=== PATIENT | female | born 1990 | race Two or more races ===

== ENCOUNTER 2019-03-17 23:21 | Outpatient (CLI) | payer BC ==
[~2019-03-17] VITALS: Ht 162.6 cm; Wt 127.7 kg
[~2019-03-17 23:21] MED LIST: AMOX1TAB10 PO; BEN25 PO; FER325 PO; IBUP800T48 PO; PREN-93 PO; URSO300C21 PO
[2019-03-18] MEDS ORDERED: DIPHENHYDRAMINE 25 MG CAP PO ONE
[2019-03-18] MEDS ORDERED: BETAMET NA PHOS/AC(6 MG/ML) 2 ML INJ SYG IM ONE
[2019-03-18 00:01] VITALS: Ht 162.6 cm; Wt 127.7 kg
[2019-03-18 00:03] VITALS: BP 121/73; PULSE 111; RESP 20
--- NOTE | 2019-03-18 01:08 | PN ---
Triage Information Date/Time Reason for visit: NST BPP for cholestasis and BMZ for prep for early delivery Weeks of Gestation 35w3d /Para Diabetes: none Diabetes management: insulin controlled Hypertention: none Additional information on actigall 300mg TID and [id number] prn plan to deliver 36w Objective Vital Signs Date Temp Pulse Resp B/P (MAP) Pulse Ox O2 O2 Flow FiO2 Time Delivery Rate 03/18/19 98.3 111 20 121/73 Room Air 00:03 (89) Heart Rate: 140's Heart Rate Comments CAT I Contractions: None Results/Medications Imaging Results BPP 03/31 ABDELRAHMAN 22.1 Disposition: Discharge Assessment/Plan A IUP 35w3d cholestasis of P deliver at 36w RTH for second dosage of BMZ tomorrow LUAN CORONADO MD Mar 18, 2019 01:08
--- NOTE | 2019-03-18 03:54 | TRIAGE ---
OB Triage Datetime Report Generated by CPN: 03/18/2019 03:54 Datetime: 03/18/2019 00:42 Stage of : OB Triage Datetime: 03/18/2019 00:41 Stage of : OB Triage Labor Evaluation Frequency: Occasional Monitor Mode: External Duration (sec)2399: 40-70 Quality: Mild Pattern: Normal: <= 5 Contractions in 10 Minutes Resting Tone [place]: Relaxed Heart Rate FHR Baseline Rate: 145 Monitor Mode: External US FHR Baseline Changes: No Baseline Change Variability: Moderate 6-25 bpm Accelerations: 15X15 Datetime: 03/18/2019 00:00 Stage of : OB Triage Labor Evaluation Frequency: Irritability Monitor Mode: External Duration (sec)2399: 20-40 Quality: Mild Pattern: Normal: <= 5 Contractions in 10 Minutes Resting Tone [place]: Relaxed Heart Rate FHR Baseline Rate: 145 Monitor Mode: External US Variability: Moderate 6-25 bpm Accelerations: 15X15 Decelerations: None Category: Category I Datetime: 03/17/2019 23:55 Stage of : OB Triage Datetime: 03/17/2019 23:54 Stage of : OB Triage Datetime: 03/17/2019 23:39 Stage of : OB Triage Assessment Type: Triage Maternal Assessment Level of Consciousness: Keenly Alert, Responsive DTR's/Clonus: DTRs 2+; No Clonus Headache: Denies Blurred Vision: No Respiratory Effort: Unlabored; Regular Rhythm; Equal Expansion Breath Sounds, Left: Clear and Equal Breath Sounds, Right: Clear and Equal Nausea/Vomiting: Denies RUQ Epigastric Pain: Denies Lower Extremities Edema: Bilateral Lower Extremities Degree: Pitting Upper Extremities Edema: None Degree: None Facial Edema: None Temperature Route: Oral Fall Risk Assessment History of Falling: (0) No Secondary Diagnosis: (0) No Ambulatory Aid: (0) Bedrest/Nurse Assist IV Therapy: (0) No Gait: (0) Normal/Bedrest/Immobile Mental Status: (0) Oriented to Own Ability Fall Score: 0 Fall Risk Score Definition: No Risk: No action required Pain Assessment Pain Scale: 0 Pain Presence: None/Denies Pain Type: N/A Datetime: 03/17/2019 23:36 Time of Arrival: 03/17/2019 23:13 EGA: 35.3 Arrived By: Ambulatory Arrived From: Dr. Colbert Chief Complaint: C/O Itching Follow-up for cholestasis Sent from clinic for BPP _ Betamethasone Movement: Present Contractions: Denies/Absent Rupture of Membranes: Denies Vaginal Bleeding: None Vaginal Discharge: Denies Abdominal Trauma: Not Applicable Patient Complaints: Other Additional Patient Complaints: Pt taking Actigall 300mg TID - only took 1 pill today @1999. C/O itc donald all over body at this time. Took Benadryl 25mg @1999 but states usually takes 50mg. Dr.Delshad sheila christianson told pt to come to triage this morning after clinic visit. Pt states plans to delive r her @36wks. Time Provider Notified: 03/17/2019 23:55 Provider Notified: Initial Plan: BPP, Betamethasone injection Datetime: 03/17/2019 23:32 Stage of : OB Triage Monitor Mode: External Contraction Comments: [place] applied Heart Rate FHR Baseline Rate: 150 Monitor Mode: External US Comments: EFM applied Datetime: 03/10/2019 15:39 EGA: 34.3
== END 2019-03-18 01:20 | disposition home or self-care (01) ==
LOC: OBT 23:21 → L-D 23:21 → OBT 03-18 01:20
PROVIDERS: ATTEND Obstetrics & Gynecology
DX: O26.613 Liver and biliary tract disorders in pregnancy, third trimester (principal); K83.1 Obstruction of bile duct; O24.414 Gestational diabetes mellitus in pregnancy, insulin controlled; Z3A.35 35 weeks gestation of pregnancy
CPT/HCPCS: 76818; 96372; J0702; Z7500; Z7610; G0463

== ENCOUNTER 2019-03-18 23:12 | Outpatient (CLI) | payer BC ==
[~2019-03-18] VITALS: Ht 162.6 cm; Wt 126.9 kg
[2019-03-18 23:36] VITALS: Ht 162.6 cm; Wt 126.9 kg
[2019-03-18 23:37] VITALS: BP 115/81; PULSE 123; RESP 20
[2019-03-19] MEDS ORDERED: BETAMET NA PHOS/AC(6 MG/ML) 2 ML INJ SYG IM ONE (00:30)
--- NOTE | 2019-03-19 01:54 | TRIAGE ---
OB Triage Datetime Report Generated by CPN: 03/19/2019 01:54 Datetime: 03/18/2019 23:46 Frequency: NONE Monitor Mode: External Resting Tone [place]: Relaxed FHR Baseline Rate: 135 Monitor Mode: External US Variability: Moderate 6-25 bpm Accelerations: 15X15 Decelerations: None Category: Category I Datetime: 03/18/2019 23:27 Time of Arrival: 03/18/2019 23:03 EGA: 35.4 Arrived By: Wheelchair Arrived From: Home Chief Complaint: NST, 2nd dose of Betamethasone Movement: Present Contractions: Denies/Absent Rupture of Membranes: Denies Vaginal Bleeding: None Vaginal Discharge: Denies Recent Sexual Intercouse: Denies Abdominal Trauma: Not Applicable Patient Complaints: None Time Provider Notified: 03/18/2019 23:30 Provider Notified: Dr. Shultz Initial Plan: NST, Beta Datetime: 03/18/2019 23:23 Stage of : OB Triage Assessment Type: Triage Level of Consciousness: Keenly Alert, Responsive DTR's/Clonus: DTRs 2+; No Clonus Headache: Denies Blurred Vision: No Respiratory Effort: Unlabored; Regular Rhythm; Equal Expansion Breath Sounds, Left: Clear and Equal Breath Sounds, Right: Clear and Equal Nausea/Vomiting: Denies RUQ Epigastric Pain: Denies Lower Extremities Edema: None Degree: None Upper Extremities Edema: None Degree: None Facial Edema: None Temperature Route: Oral History of Falling: (0) No Secondary Diagnosis: (0) No Ambulatory Aid: (0) Bedrest/Nurse Assist IV Therapy: (0) No Gait: (0) Normal/Bedrest/Immobile Mental Status: (0) Oriented to Own Ability Fall Score: 0 Fall Risk Score Definition: No Risk: No action required Pain Scale: 0 Pain Presence: None/Denies Pain Type: N/A Datetime: 03/18/2019 23:21 Monitor Mode: External (Annotations: Applied) Resting Tone [place]: Relaxed Monitor Mode: External US (Annotations: Applied) Datetime: 03/18/2019 00:41 Pain Scale: 0 Pain Presence: None/Denies Pain Type: N/A Datetime: 03/18/2019 00:22 Stage of : OB Triage
--- NOTE | 2019-03-22 23:01 | PN ---
Triage Information Date/Time Reason for visit: cholestasis of Weeks of Gestation 35 weeks /Para Diabetes: none Hypertention: none Objective Vital Signs Date Temp Pulse Resp B/P (MAP) Pulse Ox O2 O2 Flow FiO2 Time Delivery Rate 03/18/19 98.1 123 20 115/81 98 Room Air 23:37 (92) Heart Rate: 120's Heart Rate Comments Reactive Disposition: Discharge Assessment/Plan Patient was given IM betamethasone for lung maturity FLORECITA ANDERSEN MD Mar 22, 2019 23:01
== END 2019-03-19 01:00 | disposition home or self-care (01) ==
LOC: OBT 23:12 → L-D 23:13 → OBT 03-19 01:00
PROVIDERS: ATTEND Obstetrics & Gynecology
DX: O26.613 Liver and biliary tract disorders in pregnancy, third trimester (principal); K83.1 Obstruction of bile duct; Z3A.35 35 weeks gestation of pregnancy
CPT/HCPCS: J0702; Z7500; G0463

== ENCOUNTER 2019-03-21 16:00 | Inpatient (IN) | payer BC ==
[~2019-03-21] VITALS: Ht 162.6 cm; Wt 127.4 kg
[2019-03-21] MEDS ORDERED: OXYTOCIN 30 UNITS/LR 500 ML IV PRN (17:30)
[2019-03-21] MEDS ORDERED: OXYTOCIN 30 UNITS/LR 500 ML IV SCH ×2 (17:30)
[2019-03-21] MEDS ORDERED: LIDOCAINE 1% (MPF) 30 ML INJ INJ PRN (17:30)
[2019-03-21] MEDS ORDERED: BUTORPHANOL 2 MG INJ IV PRN (17:30)
[2019-03-21] MEDS ORDERED: MISOPROSTOL 200 MCG TAB PR PRN (17:30)
[2019-03-21] MEDS ORDERED: METHYLERGONOVINE 0.2 MG INJ IM PRN (17:30)
[2019-03-21] MEDS ORDERED: CARBOPROST 250 MCG INJ IM PRN (17:30)
[2019-03-21] MEDS ORDERED: IBUPROFEN 600 MG TAB PO PRN (17:30)
[2019-03-21 17:34] VITALS: BP 120/71; PULSE 104; RESP 18; Ht 162.6 cm; Wt 127.4 kg
[2019-03-21] MEDS: LACTATED RINGER'S 1,000 ML IV SCH (18:43)
[2019-03-21] MEDS ORDERED: AMPICILLIN 2 GM/NS (PMX) 100 ML IV ONE (19:00)
--- NOTE | 2019-03-21 19:46 | HP ---
Date/Time of Note Date/Time of Note DATE: 03/21/19 TIME: 19:44 OB - History Hx of Present Chief Complaint: induction of labor Estimated Due Date: Apr 18, 2019 : 1 Para: 0 Spontaneous : 0 Therapeutic : 0 Care: Good Care Ultrasounds: Normal mid trimester US Obstetrical Complications: None Medical Complications: None Past Family/Social History * Past Medical, Surgical, Family and Obstetric Histories reviewed from chart. GBS Status: Positive OB Admission Exam Vital Signs Vital Signs Vital Signs Date Temp Pulse Resp B/P (MAP) Pulse Ox O2 O2 Flow FiO2 Time Delivery Rate 03/21/19 98.2 104 18 120/71 17:34 (87) Physical Exam HEENT: WNL Heart: Rhythm Normal Lungs: Clear, Equal Abdomen: WNL Extremities: Normal Reflexes: Normal Cervical Dilatation: None Effacement: 50% Station: -2 Membranes: Intact Heart Rate: 120's Accelerations: Accelerations Present Decelerations: No Decelerations Varibility: Moderate Last 72 hours Lab Results CBC & BMP 03/21/19 18:45 OB Assessment/Plan Reason for admission: induction of labor Other Assessment: Intrahepatic cholestasis of Plan: Induction Induction Method: per Misoprostol Protocol FLORECITA ANDERSEN MD Mar 21, 2019 19:46
[2019-03-21] MEDS: MISOPROSTOL 50 MCG CAPSULE PO SCH (20:14)
[2019-03-21] MEDS: URSODIOL 300 MG CAP PO SCH (21:13)
[2019-03-22] MEDS: AMPICILLIN 1 GM/NS (PMX) 50 ML IV SCH ×7 (00:22→22:56)
[2019-03-22] MEDS: MISOPROSTOL 50 MCG CAPSULE PO SCH ×6 (00:22→17:00)
[2019-03-22] MEDS: LACTATED RINGER'S 1,000 ML IV SCH ×4 (02:53→19:41)
[2019-03-22] MEDS: URSODIOL 300 MG CAP PO SCH ×3 (09:19→23:17)
--- NOTE | 2019-03-22 12:21 | PREAC ---
Date/Time of Note Date/Time of Note DATE: 03/22/19 TIME: 12:20 Anesthesia Eval and Record Evaluation Time Pre-Procedure Interview DATE: 03/22/19 TIME: 12:20 Age 28 Sex female NPO: 8 hrs Preoperative diagnosis iup at term Planned procedure labor epidural Past Medical History Past Medical History: Includes GI: Morbid obesity Surgery & Anesthesia Issues No known issue Meds Anticoagulation: No Beta Magdalena within 24 hr: No Reason Beta Magdalena not given: Pt. not on B-Magdalena Reported Medications Diphenhydramine Hcl* (Benadryl*) 25 Mg Cap, 25 MG PO Q6H PRN for ITCHING, CAP 03/18/19 Ferrous Sulfate* (Ferrous Sulfate*) 325 Mg Tabec, 325 MG PO BID, TAB 03/10/19 Ursodiol* (Actigall*) 300 Mg Cap, 300 MG PO TID, #90 CAP 03/10/19 Vit No.124/Iron/FA ( Vitamin Tablet) 1 Each Tablet, 1 EACH PO DAILY, TAB 03/10/19 Current Medications Lactated Ringer's 1,000 ml @ 125 mls/hr Q8H IV Last administered on 03/22/19at 02:53; Admin Dose 125 MLS/HR; Start 03/21/19 at 17:07 Butorphanol Tartrate (Stadol) 2 mg Q2H PRN IV .PAIN SCALE 6-10 Last administered on 03/22/19at 05:13; Admin Dose 2 MG; Start 03/21/19 at 17:30 Lidocaine (Xylocaine 1% (Mpf)) 30 ml ONCE PRN INJ .EPISIOTOMY; Start 03/21/19 at 17:30 Oxytocin/Lactated Ringer's 500 ml @ 500 mls/hr ONCE POST IV ; Start 03/21/19 at 17:30 Oxytocin/Lactated Ringer's 500 ml @ 125 mls/hr POST IV ; Start 03/21/19 at 17:30 Ibuprofen (Motrin) 600 mg ONCE PRN PO .PAIN 1-5; Start 03/21/19 at 17:30 Oxytocin/Lactated Ringer's 500 ml @ 0 mls/hr ONCE PRN IV .VAGINAL BLEEDING; Sta rt 03/21/19 at 17:30 Methylergonovine Maleate (Methergine) 0.2 mg ONCE PRN IM .VAGINAL BLEEDING; Sta rt 03/21/19 at 17:30 Carboprost Tromethamine (Hemabate) 250 mcg ONCE PRN IM .VAGINAL BLEEDING; Start 03/21/19 at 17:30 Misoprostol (Cytotec) 1,000 mcg ONCE PRN MI .VAGINAL BLEEDING; Start 03/21/19 at 17:30 Ampicillin 50 ml @ 100 mls/hr Q4H IV Last administered on 03/22/19at 09:19; Admin Dose 100 MLS/HR; Start 03/21/19 at 23:00 Ursodiol (Actigall) 300 mg TID PO Last administered on 03/22/19at 09:19; Admin Dose 300 MG; Start 03/21/19 at 21:00 Misoprostol (Cytotec 50 Mcg Capsule) 50 mcg Q4 PO Last administered on 03/22/19at 00:22; Admin Dose 50 MCG; Start 03/21/19 at 20:00 Oxytocin/Lactated Ringer's 500 ml @ 0 mls/hr FOR INDUCTION IV ; Start 03/22/19 at 12:30 Meds reviewed: Yes Allergies Coded Allergies: No Known Allergy (Unverified , 03/18/19) Allergies Reviewed: Yes Labs/Studies Labs Reviewed: Reviewed by anesthesiologist Result Diagram: 03/21/19 1845 Laboratory Tests 03/21/19 18:45 Blood Bank Test 03/21/19 18:45 Antibody Screen NEGATIVE Blood Type AB POSITIVE Rh Immune Globulin Candidate NO test: Positive Pre-procedure Exam Last vitals Vital Signs Date Temp Pulse Resp B/P (MAP) Pulse Ox O2 O2 Flow FiO2 Time Delivery Rate 03/21/19 98.2 104 18 120/71 17:34 (87) Airway: Adequate mouth opening, Adequate thyromental dist Mallampati: Mallampati II Teeth: Normal Lung: Normal Heart: Normal ASA Physical Status ASA physical status: 2 Emergency: None Planned Anesthetic Neuraxial: Epidural Planned Pain Management Parenteral pain med Pre-operative Attestations Prior to commencing anesthesia and surgery, the patient was re-evaluated, there was verification of: *The patient's identity *The results of appropriate recent lab work and preoperative vital signs *The above evaluation not changing prior to induction *Anesthetic plan, risk benefits, alternative and complications discussed with patient/family; questions answered; patient/family understands, accepts and wis hes to proceed. JOANA MCMULLEN 30, 2019 12:21
[2019-03-22] MEDS ORDERED: FENTAnyl 2MCG/ML-ROPIV 0.2% 100 ML ONE (12:23)
[2019-03-22] MEDS ORDERED: ONDANSETRON 4 MG INJ IV PRN (12:30)
[2019-03-22] MEDS ORDERED: OXYTOCIN 30 UNITS/LR 500 ML IV SCH (12:30)
[2019-03-22] MEDS ORDERED: NALOXONE (0.4 MG/ML) INJ IV PRN (12:30)
[2019-03-22] MEDS ORDERED: FENTAnyl 2MCG/ML-ROPIV 0.2% 100 ML BAG EPI SCH (12:30)
[2019-03-22] MEDS ORDERED: DIPHENHYDRAMINE 50 MG INJ IV PRN (12:30)
[2019-03-23] MEDS ORDERED: MINERAL OIL LIGHT 10 ML VIAL TOP ONE (02:44)
[2019-03-23] MEDS: AMPICILLIN 1 GM/NS (PMX) 50 ML IV SCH (03:00)
--- NOTE | 2019-03-23 03:39 | LDN ---
Date/Time of Note Date/Time of Note DATE: 03/23/19 TIME: 03:36 Delivery Summary Weeks of Gestation 36 weeks and 2 days Placenta Delivered: Spontaneously Meconium: Light Episiotomy: No Laceration repair: Second degree perineal laceration repaired with 3-0 Vicryl and 3-0 chromic. Anesthesia type: Epidural Estimated blood loss: 300 Sponge & Needle done & correct: Yes All needle counts correct: Yes Any foreign bodies felt in the: No Delivery Information Sex Infant Sex: female Apgars 1 Minute: 8 5 Minute: 9 Suctioning Nose & mouth suctioned at sandeep: No Delee suction performed: No Umbilical Cord Umbilical cord with: 3 Vessels Cord presentations: no nuchal cord Cord Blood was obtained: Yes Mother & Baby Disposition Disposition Mom & Baby to Maternity; Good: Yes FLORECITA ANDERSEN MD Mar 23, 2019 03:39
[2019-03-23 05:45] VITALS: BP 130/78; PULSE 78; RESP 18
[2019-03-23] MEDS: LACTATED RINGER'S 1,000 ML IV* SCH ×2 (06:08→07:21)
[2019-03-23] MEDS ORDERED: MISOPROSTOL 200 MCG TAB PR PRN (06:30)
[2019-03-23] MEDS ORDERED: CARBOPROST 250 MCG INJ IM PRN (06:30)
[2019-03-23] MEDS ORDERED: ACETAMINOPHEN 325 MG TAB PO PRN (06:30)
[2019-03-23] MEDS ORDERED: OXYTOCIN 30 UNITS/LR 500 ML IV PRN (06:30)
[2019-03-23] MEDS ORDERED: METHYLERGONOVINE 0.2 MG INJ IM PRN (06:30)
[2019-03-23] MEDS: WITCH HAZEL/GLYCERIN PAD PR PRN (08:11)
[2019-03-23] MEDS: DIBUCAINE 1% 30 GM OINT TOP PRN ×2 (08:12→20:54)
[2019-03-23] MEDS: BENZOCAINE 20% 56 ML SPRAY TOP PRN ×2 (08:12→20:54)
[2019-03-23 08:30] VITALS: BP 109/73; PULSE 110; RESP 18
[2019-03-23] MEDS: SENNA/DOCUSATE NA (8.6MG/50MG) TAB PO SCH ×2 (08:44→20:54)
[2019-03-23] MEDS: HYDROCODONE/APAP (5/325) TAB PO PRN (10:40)
[2019-03-23] MEDS: IBUPROFEN 600 MG TAB PO SCH ×3 (12:02→23:40)
--- NOTE | 2019-03-23 12:28 | PAC ---
Date/Time of Note Date/Time of Note DATE: 03/23/19 TIME: 12:28 Post-Anesthesia Notes Post-Anesthesia Note Last documented vital signs Vital Signs Date Temp Pulse Resp B/P (MAP) Pulse Ox O2 O2 Flow FiO2 Time Delivery Rate 03/23/19 98.0 110 18 109/73 Room Air 08:30 (85) Activity: WNL Respiratory function: WNL Cardiovascular function: WNL Mental status: Baseline Pain reasonably controlled: Yes Hydration appropriate: Yes Nausea/Vomiting absent: Yes JOANA MCMULLEN Mar 23, 2019 12:28
[2019-03-23 16:00] VITALS: BP 111/68; PULSE 91; RESP 18
[2019-03-23 19:40] VITALS: BP 117/64; PULSE 103; RESP 19
[2019-03-24 03:33] VITALS: BP 117/68; PULSE 92; RESP 18
[2019-03-24] MEDS: HYDROCODONE/APAP (5/325) TAB PO PRN ×3 (03:33→23:23)
[2019-03-24] MEDS: IBUPROFEN 600 MG TAB PO SCH ×4 (05:20→23:23)
[2019-03-24] MEDS: WITCH HAZEL/GLYCERIN PAD PR PRN ×2 (08:24→21:25)
[2019-03-24] MEDS: BENZOCAINE 20% 56 ML SPRAY TOP PRN ×2 (08:24→21:24)
[2019-03-24] MEDS: SENNA/DOCUSATE NA (8.6MG/50MG) TAB PO SCH ×2 (08:24→21:24)
[2019-03-24 08:30] VITALS: BP 126/73; PULSE 94; RESP 20
[2019-03-24 17:22] VITALS: BP 119/76; PULSE 90; RESP 18
--- NOTE | 2019-03-24 19:18 | DS ---
Date/Time of Note Date/Time of Note DATE: 03/24/19 TIME: 19:17 Obstetrical Discharge Record Final Diagnosis Final Diagnosis: delivered Other Final Diagnosis Intrahepatic cholestasis of Complications Induction: Yes Condition on Discharge Physical Assessment Voiding: Yes Bowel Movement: Yes Breast: Soft, non-tender, Filling Fundus: Firm Calf Tenderness: No Patient Condition: Stable FLORECITA ANDERSEN MD Mar 24, 2019 19:18
[2019-03-24 20:15] VITALS: BP 117/70; PULSE 95; RESP 18
[2019-03-25 03:55] VITALS: BP 117/73; PULSE 100; RESP 17
[2019-03-25] MEDS: HYDROCODONE/APAP (5/325) TAB PO PRN (04:30)
[2019-03-25] MEDS: IBUPROFEN 600 MG TAB PO SCH ×2 (05:44→12:49)
[2019-03-25 08:00] VITALS: BP 125/78; PULSE 94; RESP 18
[2019-03-25] MEDS ORDERED: DIPHTH/TET/ACEL PERTUSS (ADULT) 0.5 ML VIAL IM* ONE (09:00)
[2019-03-25] MEDS: SENNA/DOCUSATE NA (8.6MG/50MG) TAB PO SCH (09:06)
[2019-03-25] MEDS: BENZOCAINE 20% 56 ML SPRAY TOP PRN (09:06)
[2019-03-25] MEDS: WITCH HAZEL/GLYCERIN PAD PR PRN (09:06)
--- NOTE | 2019-03-26 19:01 | DELSUM ---
Delivery Summary A-C Datetime Report Generated by CPN: 03/26/2019 19:01 DELIVERY PERSONNEL Psychiatric Mental Health Nurse: Canuto, Rosie MATERNAL INFORMATION Delivery Anesthesia: Epidural Medications in Delivery: LR WITH 30 UNITS OF PITOCIN Delivery QBL (ml): 300 Placenta Cultured: No Maternal Complications: Other Other Maternal Complications: CHOLESTASIS LABOR SUMMARY EDC: 04/18/2019 00:00 No. Babies in Womb: 1 Attempted: No Labor Anesthesia: Epidural LABOR INFORMATION Reason for Induction: Other Reason for Induction- Other: CHOLESTASIS Onset of Labor: 03/22/2019 05:04 Complete Dilatation: 03/23/2019 02:20 Cervical Ripening Agents: Cytotec @ 50 Group B Beta Strep: Not Done Antibiotics # of Doses: 7 Antibiotics Time of Last Dose: 03/22/2019 23:00 Steroids Given: Full Course; >24Hs before Delivery Reason Steroids Not Administered: Indication MEMBRANES Membranes Rupture Method: Artificial Rupture of Membranes: 03/22/2019 19:12 Length of Rupture (hr): 7.92 Amniotic Fluid Color: Heavy Meconium Amniotic Fluid Amount: Moderate Amniotic Fluid Odor: None STAGES OF LABOR Stage 1 hr: 21 Stage 1 min: 16 Stage 2 hr: 0 Stage 2 min: 47 Stage 3 hr: 0 Stage 3 min: 4 Total Time in Labor hr: 22 Total Time in Labor min: 7 VAGINAL DELIVERY Episiotomy: None Laceration Extension: Second Degree Laceration Type: Perineal Laceration Repair: Yes Initial Vag Sponge Count: 10 Final Vag Sponge Count: 10 Initial Vag Sharps Count: 1 Final Vag Sharps Count: 3 Sponge Count Correct: Yes Sharps Count Correct: Yes BABY A INFORMATION Delivery Date/Time: 03/23/2019 03:07 Method of Delivery: Vaginal Born in Route : No : N/A Forceps: N/A Vacuum Extraction: N/A Shoulder Dystocia : No SHOULDER DYSTOCIA BABY A Delivery Date/Time: 03/23/2019 03:07 PRESENTATION/POSITION BABY A Presentation: Cephalic Cephalic Presentation: Vertex Vertex Position: Left Occipital Anterior Breech Presentation: N/A PLACENTA INFORMATION BABY A Placenta Delivery Time : 03/23/2019 03:11 Placenta Method of Delivery: Spontaneous Placenta Status: Delivered SCORES BABY A Heart Rate 1 min: >100 bpm Resp Effort 1 min: Good Cry Reflex Irritability 1 min: Cough/Sneeze/Pulls Away Muscle Tone 1 min: Active Motion Color 1 min: Blue/Pale Resuscitation Effort 1 min: Tactile Stimulation SCORE 1 MIN: 8 Heart Rate 5 min: >100 bpm Resp Effort 5 min: Good Cry Reflex Irritability 5 min: Cough/Sneeze/Pulls Away Muscle Tone 5 min: Active Motion Color 5 min: Body [place], Extremit Blue Resuscitation Effort 5 min: Tactile Stimulation SCORE 5 MIN: 9 INFORMATION BABY A Gestational Age at Delivery: 36.2 Gestational Status: Late - 34- 36.6 Weeks Infant Outcome : Liveborn, with signs of life Infant Condition : Stable Sex: Female IDENTIFICATION/MEDS BABY A ID Band Number: [id number] ID Band Location: Right Leg; Left Arm Sensor Applied: Yes Sensor Number: [id number] Sensor Location : Cord Clamp Vitamin K Given : Not Given Erythromycin Given: Not Given WEIGHT/LENGTH BABY A Birthweight (gm): 2900 Weight (lb): 6 Infant Weight (oz): 6 Infant Length (in): 18.75 Length (cm): 47.63 CORD INFORMATION BABY A No. Cord Vessels: 3 Nuchal Cord : N/A Cord Blood Taken: Yes Suction: Mouth; Nose; Pharynx ASSESSMENT BABY A Physical Findings at Delivery: Molding of the Head Infant Respirations: Appears Normal Donor Services Team Leader/ALS Called : No Infant Care By: Jean-Paul BHAKTA Transferred To: Remains with Mother
== END 2019-03-25 19:00 | disposition home or self-care (01) | DRG 805 ==
LOC: L-D 16:51 → PP1 03-23 05:44
PROVIDERS: ADMIT Obstetrics & Gynecology; ATTEND Obstetrics & Gynecology
PROC: 10E0XZZ Delivery of Products of Conception, External Approach (ICD-10-PCS; principal; 2019-03-23)
PROC: 0KQM0ZZ Repair Perineum Muscle, Open Approach (ICD-10-PCS; 2019-03-23)
PROC: 3E033VJ Introduction of Other Hormone into Peripheral Vein, Percutaneous Approach (ICD-10-PCS; 2019-03-23)
DX: O60.13X0 Preterm labor second trimester with preterm delivery third trimester, not applicable or unspecified (principal); K83.1 Obstruction of bile duct; Z37.0 Single live birth; O26.62 Liver and biliary tract disorders in childbirth; O99.214 Obesity complicating childbirth; E66.01 Morbid (severe) obesity due to excess calories; Z3A.36 36 weeks gestation of pregnancy
CPT/HCPCS: 62322; 76815; 76818; 85025; 85610; 85730; 86592; 86850; 86900; 86901; 87340; 90715; 99464; J0290; J0595; J2590; J3010; J7120

== ENCOUNTER 2019-04-12 16:41 | Emergency (ER) | payer BC ==
[~2019-04-12] VITALS: Ht 162.6 cm; Wt 121.4 kg
[~2019-04-12 16:41] MED LIST changes: -BEN25 PO; -URSO300C21 PO
[2019-04-12 16:53] VITALS: Ht 162.6 cm; Wt 121.4 kg
[2019-04-12] MEDS ORDERED: IBUPROFEN 800 MG TAB PO ONE (17:30)
[2019-04-12 18:03] VITALS: BP 128/69; PULSE 77; RESP 18
== END 2019-04-12 18:05 | disposition home or self-care (01) ==
LOC: E/R 16:41
DX: N61.0 Mastitis without abscess (principal)
CPT/HCPCS: 99283; Z7610